=== PATIENT | male | born 1995 | race Caucasian/White ===

== ENCOUNTER → 2019-04-20 | Outpatient (CLI) | payer OTHER ==
[2019-04-20 07:07] LABS: COLLECTION METHOD DRY COLLECTION; SPECIMEN CONTAINER POLYPROPYLENE CUP; SPERM MORPHOLOGY SENT TO REFERENC LAB
[2019-04-20 08:01] LABS: COLLECTION SITE ON-SITE; DAYS ABSTINENT 3 DAYS (2-7); SEMEN TESTING TIME 755
[2019-04-20 09:43] LABS: ROUND CELL CONC. 3.1 X10^6/mL (<5.1); SA DILUTION CNT 1 302; SA DILUTION CNT 2 300; SA DILUTION FACTOR 2; SA NONMOTILE CONCENTRATION 13.1 X10^6/mL; SA NONMOTILE COUNT1 129; SA NONMOTILE COUNT2 132; SA ROUND CELL COUNT1 27; SA ROUND CELL COUNT2 34; SA SPERM MOTILE CONC 47.1 X10^6mL; SPERM CONCENTRATION 60.2 X10^6/mL (>12.0); SPERM PROGRESSION 3; TOTAL SPERM COUNT 180.6 X10^6 (>33.0)
== END ==
LOC: LAB 06:56
PROVIDERS: ATTEND Specialist
DX: N46.9 Male infertility, unspecified (principal)
CPT/HCPCS: 89320